=== PATIENT | female | born 1995 | race American Indian/Alaskan Native ===

== ENCOUNTER 2018-12-28 10:54 | Emergency (ER) | payer OTHER ==
[2018-12-28 11:03] VITALS: BP 109/74
--- NOTE | 2018-12-28 11:29 | Emergency Department Report ---
ED Dysuria HPI - HPI Chief Complaint: Vaginal Bleeding Stated Complaint: IRREGULAR BLEEDING Time Seen by Provider: 12/28/18 11:27 Severity: Mild Symptoms: Dysuria: No, Frequency: No, Suprapubic Pain: No, Flank Pain: No, F ever: No, Hematuria: No, Abdominal Pain: No, Previous UTI's: No Other History: 23 YO FEMALE COME TO ER CO IRREGULAR VAG BLEEDING. NO VAG DISCHARGE. NO FEVER OR CHILLS. ED Review of Systems ROS: Stated complaint: IRREGULAR BLEEDING Other details as noted in HPI Comment: All other systems reviewed and negative ED Past Medical Hx - Past Medical History Previous Medical History?: No - Surgical History Past Surgical History?: No - Social History Smoking Status: Never Smoker Substance Use Type: Alcohol - Medications Home Medications: Home Medications Medication Instructions Recorded Confirmed Last Taken Type traMADol [Ultram] 50 mg PO Q6HR PRN #12 tablet 02/03/18 Unknown Rx Dysuria Exam - Exam General: Vital signs noted. No distress. Alert and acting appropriately. Exam: Yes Moist Mucous Membranes, No CVA Tenderness, No Abdominal Tenderness, No Rigidity or Guarding ED Course Vital Signs 12/28/18 11:02 Temperature 98.7 F Pulse Rate 66 Respiratory 16 Rate Blood Pressure 109/74 O2 Sat by Pulse 98 Oximetry ED Medical Decision Making - Lab Data Result diagrams: 12/28/18 11:37 12/28/18 11:37 - Medical Decision Making Laboratory Results - last 72 hr 12/28/18 12/28/18 12/28/18 11:37 11:37 11:37 WBC 5.5 RBC 4.63 Hgb 15.1 H Hct 42.8 MCV 93 MCH 33 H MCHC 35 H RDW 12.7 L Plt Count 309 Lymph % (Auto) [employer]visor Seg Neutrophils % [employer]visor Sodium 138 Potassium 3.7 Chloride 101.1 Carbon Dioxide 28 Anion Gap 13 BUN 15 Creatinine 0.5 L Estimated GFR > 60 BUN/Creatinine Ratio 30 Glucose 86 Calcium 9.6 HCG, Quant < 2 Urine Color Urine Turbidity Urine pH Ur Specific Worden Urine Protein Urine Glucose (UA) Urine Ketones Urine Blood Urine Nitrite Ur Reducing Substances Urine Bilirubin Urine Ictotest Urine Urobilinogen Ur Leukocyte Esterase Urine WBC (Auto) Urine RBC (Auto) U Epithel Cells (Auto) Urine Mucus 12/28/18 Unknown WBC RBC Hgb Hct MCV MCH MCHC RDW Plt Count Lymph % (Auto) Seg Neutrophils % Sodium Potassium Chloride Carbon Dioxide Anion Gap BUN Creatinine Estimated GFR BUN/Creatinine Ratio Glucose Calcium HCG, Quant Urine Color Yellow Urine Turbidity Clear Urine pH 6.0 Ur Specific Worden 1.024 Urine Protein <15 mg/dl Urine Glucose (UA) Neg Urine Ketones 20 Urine Blood Neg Urine Nitrite Neg Ur Reducing Substances Not Reportable Urine Bilirubin Neg Urine Ictotest Not Reportable Urine Urobilinogen < 2.0 Ur Leukocyte Esterase Neg Urine WBC (Auto) < 1.0 Urine RBC (Auto) 4.0 U Epithel Cells (Auto) 1.0 Urine Mucus 2+ Vital Signs 12/28/18 11:02 Temperature 98.7 F Pulse Rate 66 Respiratory 16 Rate Blood Pressure 109/74 O2 Sat by Pulse 98 Oximetry PREG NEG H/H NORMAL VSS DC HOME WITH DC PLAN OF CARE. PT WILL FOLLOW UP WITH OBGYN. TAKING PO AMBULATORY - Differential Diagnosis RO PREG Critical care attestation.: If time is entered above; I have spent that time in minutes in the direct care of this critically ill patient, excluding procedure time. ED Disposition Clinical Impression: Irregular periods Disposition: [id number] TO HOME OR SELFCARE Is pt being admited?: No Does the pt Need Aspirin: No Condition: Stable Instructions: Menorrhagia (ED) Additional Instructions: FOLLOW UP WITH OBGYN REFERRAL BELOW Referrals: REECE LAZO MD [Primary Care Provider] - 3-5 Days NI BENITEZ MD [Staff Physician] - 3-5 Days Forms: Work/School Release Form(ED) Time of Disposition: 12:26
[2018-12-28 11:36] LABS: Mucus,Urine 2+ /HPF; WBC,Urine < 1.0 /HPF (0.0-6.0)
[2018-12-28 11:43] LABS: Bilirubin,Urine NEG (Negative); Blood,Urine NEG (Negative); Color,Urine Yellow (Yellow); Protein,Urine <15 mg/dL mg/dL (Negative); Urobilinogen,Urine < 2.0 mg/dL (<2.0)
[2018-12-28 12:01] LABS: Hematocrit 42.8 % (30.3-42.9); Hemoglobin 15.1 gm/dl (10.1-14.3); Mean Corpuscular HGB Conc 35 % (30-34); Mean Corpuscular Volume 93 fl (79-97); Platelet Count 309 K/mm3 (140-440); Red Blood Count 4.63 M/mm3 (3.65-5.03); Red Cell Distribution Width 12.7 % (13.2-15.2)
[2018-12-28 12:12] LABS: BUN/Creatinine Ratio 30; Blood Urea Nitrogen 15 mg/dL (7-17); Calcium 9.6 mg/dL (8.4-10.2); Hemolysis Index 4
[2018-12-28 14:25] LABS: Anisocytosis Few; Basophils % (Manual) 0 % (0.0-1.8); Eosinophils % (Manual) 0 % (0.0-4.3); Ovalocytes Few; Platelet Estimate Consistent w Auto; Total Cells Counted 100
== END 2018-12-28 12:45 | disposition home or self-care (01) ==
LOC: ED 10:54
DX: N92.6 Irregular menstruation, unspecified (principal)
CPT/HCPCS: 36415; 80048; 81001; 84702; 85007; 85025